=== PATIENT | male | born 1975 | race Caucasian/White ===

== ENCOUNTER 2021-10-18 09:11 | Outpatient (CLI) | payer OTHER, SELFPAY ==
--- NOTE | 2021-10-18 09:19 | XR_ITS ---
WS: [id number] Exam: XR chest 2V* [id number] Date/Time of Exam: 10/18/2021 9:20 AM Reason For Exam: COUGH Comparison 04/16/2002. Findings: The lungs are clear and fully expanded. Costophrenic angles are sharp. No infiltrates. Bronchovascula r relief appears normal. Cardiac silhouette is unremarkable. Bony elements are intact. XR/XR chest 2V* [id number] IMPRESSION: Unremarkable chest radiograph.
== END 2021-10-18 09:12 | disposition home or self-care (01) ==
PROVIDERS: PCP Family Medicine; Visit Provider Nurse Practitioner Family
DX: R05.9 Cough, unspecified (principal)
CPT/HCPCS: 71046

== ENCOUNTER 2023-08-06 06:36 | Outpatient (CLI) | payer OTHER, SELFPAY ==
--- NOTE | 2023-08-06 | US_ITS ---
WS: [id number] RIGHT UPPER QUADRANT ULTRASOUND HISTORY: Elevated LFT COMPARISON: None available. Liver: 22.1 cm in length. Markedly enlarged liver with moderate diffuse hepatic steatosis. The entire liver is not well visualized due to attenuation. No mass or bile duct dilatation. Portal Vein: Normal hepatopetal flow with monophasic waveform. Gallbladder: Normally distended gallbladder with no stones or wall thickening. CBD: 0.6 cm Pancreas: Portions of the head and tail are obscured. The body is negative. Right kidney: 11.8 cm in length. Normal size and echogenicity. No hydronephrosis or mass. Aorta and IVC: Unremarkable abdominal aorta and IVC. No ascites. IMPRESSION: 1. Normal gallbladder. 2. Marked hepatomegaly with moderate hepatic steatosis.
== END 2023-08-06 06:37 | disposition home or self-care (01) ==
PROVIDERS: PCP Nurse Practitioner Family; Visit Provider Nurse Practitioner Family
DX: R79.89 Other specified abnormal findings of blood chemistry (principal); K76.0 Fatty (change of) liver, not elsewhere classified; R16.0 Hepatomegaly, not elsewhere classified
CPT/HCPCS: 76705

== ENCOUNTER 2023-09-09 12:00 | Outpatient (CLI) | payer OTHER, SELFPAY | END 2023-09-09 12:01 | disposition home or self-care (01) | LOC: SLEEP 09-10 12:57 | PROVIDERS: PCP Nurse Practitioner Family; Visit Provider Nurse Practitioner Family | DX: G47.10 Hypersomnia, unspecified (principal); G47.33 Obstructive sleep apnea (adult) (pediatric); G47.36 Sleep related hypoventilation in conditions classified elsewhere | CPT/HCPCS: G0399 ==